=== PATIENT | female | born 1965 | race Caucasian/White ===

== ENCOUNTER 2025-10-07 14:26 | Emergency (ER) | payer OTHER, SELFPAY ==
--- NOTE | ~2025-10-07 | XR_ITS ---
EXAMINATION: XR chest 2V 10/07/2025 15:02 INDICATION: Cough with shortness of breath PROCEDURE: 2 view chest COMPARISON: No prior studies for comparison. FINDINGS: The lungs are clear. The cardiomediastinal silhouette is within normal limits. There are no pleural effusions. There is no pneumothorax suspected. IMPRESSION: 1: NO ACUTE CARDIOPULMONARY DISEASE. Reviewed, dictated and finalized at location [facility]
--- NOTE | 2025-10-07 14:39 | ED_ITS ---
HPI - URI/Sore Throat General Chief Complaint: Upper Respiratory Infection Stated Complaint: cough, Chest pains Time Seen by Provider: 10/07/25 14:50 Source: patient Mode of arrival: ambulatory Limitations: no limitations History of Present Illness HPI Narrative: Pati is a 59-year-old female patient presenting to the clinic today with complaints of productive cough with green phlegm, ear pain, feeling short of breath, wheezing, and chest discomfort with coughing x1 week. She reports she has taken Advil Sinus and cold, Tylenol, and Advil for her symptoms. No known fevers, chills, or body aches. Rates pain currently an 8/10. states she sounds as though she is wheezing at nighttime when she lays flat. Related Data Home Medications ?Medication ?Instructions ?Recorded ?Confirmed ?Last Taken ?Type simvastatin 10 mg tablet 10 mg PO DAILY 05/05/20 Unk nown History trazodone 100 mg tablet 100 mg PO .HS PRN insomnia 0 05/05/20 Unknown History Allergies Allergy/AdvReac Type Severity Reaction Status Date / Time No Known Allergies Allergy Verified 10/07/25 14:53 Review of Systems Review of Systems: Pertinent positives per HPI. Patient denies any fever, chills, rash, headache, visual changes, dizziness, palpitations, nausea, vomiting, diarrhea, constipation, abdominal pain, or any urinary issues. PMFSH Family History Family History Other Depression Social History Social History Smoking status: Never smoker Second hand tobacco smoke exposure: No Alcohol intake: current Comments At the time of my signature, I reviewed and agree with the nursing past medical, surgical, social, and family history. There is no relevant family history pertinent to the patient complaint. Exam Narrative: General: Well-developed, obese, in no apparent distress Head: Normocephalic, atraumatic Eyes: Pupils equally round and reactive to light bilaterally, EOM intact, sclera and conjunctive clear, no discharge, lids normal Ears: Left TMs intact and clear, right TM intact, bulging, red, ear canals clear, no drainage, grossly hearing normal. Nose: Nares patent, clear nasal discharge, mild inflammation, no sinus tenderness. Mouth: Oral pharynx without lesions or masses, good dentition, MMM. Neck: Supple, trachea midline, no enlargement of anterior or posterior cervical nodes, no thyroid masses or goiter palpable. Cardio: Regular rate and rhythm, s1 and s2 normal, no murmur appreciated. Resp: Crackles in the left lower lobe, no rhonchi, wheezing or rubs Course Course Level of Care: Express Care Visit Vital Signs Vital signs: Vital Signs Temperature 37.1 C 10/07/25 14:47 Pulse Rate 83 10/07/25 14:47 Respiratory Rate 24 H 10/07/25 14:47 Blood Pressure 127/99 H 10/07/25 14:47 Pulse Oximetry 100 10/07/25 14:47 Oxygen Delivery Room Air 10/07/25 14:47 Temperature 37.1 C 10/07/25 14:47 Pulse Rate 83 10/07/25 14:47 Respiratory Rate 24 H 10/07/25 14:47 Blood Pressure 127/99 H 10/07/25 14:47 Pulse Oximetry 100 10/07/25 14:47 Oxygen Delivery Room Air 10/07/25 14:47 MDM MDM Narrative Medical decision making narrative: At the time of visit patient is resting comfortably on the exam table. Patient appears to be nontoxic. Complaints of productive cough with green phlegm, ear pain, feeling short of breath, wheezing, and chest discomfort with coughing x1 week. She reports she has taken Advil Sinus and cold, Tylenol, and Advil for her symptoms. No known fevers, chills, or body aches. On exam patient has left TM intact and clear, right TM intact, bulging, red, clear nasal drainage, mild anterior turbinate inflammation, oral pharynx mildly red with postnasal drip, crackles in the left lower lobe, heart rates regular rate and rhythm. COVID, influenza, and chest x-ray was ordered. Labs: COVID, influenza testing were all negative in the clinic today Diagnostics: Chest x-rays negative for any acute cardiopulmonary process. Plan: I suspect patient has bronchitis/right otitis media. Prescription for prednisone, Tessalon Perles, Augmentin, and albuterol inhaler was sent to the pharmacy. Supportive measures were discussed with the patient and they voiced understanding discharge instructions and agrees to treatment plan. Return precautions reviewed Differential Diagnosis Differential Diagnosis: Differential diagnostic considerations for upper respiratory infection include upper respiratory infection, croup, otitis media, sinusitis, viral infection, bronchitis, influenza, pharyngitis, strep, uvulitis. Lab Data Labs: Lab Results 10/07/25 10/07/25 Range/Units 15:09 15:10 POC Influenza A Ag Negative (Negative) POC Influenza B Ag Negative (Negative) POC SARS CoV-2 Ag Negative (Negative) Imaging Data Radiologist's impression: ITS Impressions Chest X-Ray 10/07/25 15:12 IMPRESSION: 1: NO ACUTE CARDIOPULMONARY DISEASE. Discharge Plan Discharge Clinical Impression: Acute purulent bronchitis Otitis media Qualifiers: Otitis media type: suppurative Chronicity: acute Laterality: right Recurrence: non-recurrent Spontaneous tympanic membrane rupture: without spontaneous rupture Qualified Code(s): H66.001 - Acute suppurative otitis media without spontaneous rupture of ear drum, right ear Patient Disposition: Home Condition: Stable Instructions: Antibiotic Form, Ear Infection (ED), Acute Bronchitis (ED) Additional Instructions: Chest x-rays negative for any acute cardiopulmonary process. COVID and influenza testing is negative. Take prescription medications only as prescribed-albuterol inhaler, prednisone, and Augmentin Increase fluids and stay well hydrated May take Tylenol or motrin as directed on bottle for pain/fever May use Flonase 1 spray in each nare daily May take OTC antihistamines such as Zyrtec or Claritin daily as directed on bottle May apply Vicks vapor rub to chest to open sinuses Sinus rinses for congestion Cepacol spray, cough drops, throat lozenges, warm tea with honey/lemon, gargle salt water to soothe throat BRAT diet for diarrhea Clear liquids x 24 hours then advance as tolerated for nausea/vomiting Go to the ED if you develop a worsening in your condition- high fever not controlled by Tylenol or Motrin, dehydration, weakness, lethargy, shortness of breath, or chest pain. Follow up with your PCP in 3-5 days if symptoms persist. Patient Language: Citizen Of [place] Prescriptions: New prednisone 20 mg tablet 40 mg PO DAILY 5 Days Qty: 10 0RF benzonatate 200 mg capsule 200 mg PO TID 7 Days Qty: 21 0RF albuterol sulfate 90 mcg/actuation HFA aerosol inhaler 2 puff inhalation Q4-6H PRN (Reason: shortness of breath or wheezing) 30 Days Qty: 8.5 0RF amoxicillin-pot clavulanate 875-125 mg tablet 1 tablet PO Q12H 7 Days Qty: 14 0RF No Action simvastatin 10 mg tablet 10 mg PO DAILY trazodone 100 mg tablet 100 mg PO .HS PRN (Reason: insomnia) levothyroxine 112 mcg tablet 112 mcg PO DAILY Qty: 90 3RF Follow-up/Referrals: PHYSICIAN NOT ON STAFF,NONSTAFF [Primary Care Provider] Time of Disposition: 15:43 Quality NIHSS Nursing Documentation ED NIHSS nursing documentation: reviewed/agree
[2025-10-07 14:47] VITALS: BP 127/99; PULSE 83; RESP 24; TEMP 37.1; O2SAT 100
[2025-10-07 15:11] LABS: EDCOVIDSCREEN Negative (Negative)
[2025-10-07 15:11] LABS: EDINFLUASCREEN Negative (Negative); EDINFLUBSCREEN Negative (Negative)
== END 2025-10-07 15:47 | disposition home or self-care (01) ==
PROVIDERS: Emergency Provider Nurse Practitioner Family
DX: J20.9 Acute bronchitis, unspecified (principal); H66.001 Acute suppurative otitis media without spontaneous rupture of ear drum, right ear; Z20.822 Contact with and (suspected) exposure to COVID-19; E78.00 Pure hypercholesterolemia, unspecified; E03.9 Hypothyroidism, unspecified; F32.A Depression, unspecified
CPT/HCPCS: 71046; 87426; 87804; 99203; G0463